=== PATIENT | male | born 1990 | race Caucasian/White ===

== ENCOUNTER 2018-03-10 03:21 | Emergency (ER) | payer SELFPAY ==
[~2018-03-10] VITALS: Ht 188 cm; Wt 118.0 kg
[2018-03-10] MEDS ORDERED: SODIUM CHLORIDE 0.9% 1,000 ML IV ONE (04:09)
[2018-03-10] MEDS ORDERED: FENTANYL CITRATE/PF 50MCG/ML 2ML VIAL IV ONE (04:15)
[2018-03-10] MEDS ORDERED: ONDANSETRON HCL 4MG/2ML INJ IV ONE (04:15)
[2018-03-10] MEDS ORDERED: PROPOFOL 200MG/20ML VIAL IV ONE (04:15)
[2018-03-10 06:02] VITALS: BP 125/74
== END 2018-03-10 06:31 | disposition home or self-care (01) ==
LOC: ER 03:21
DX: S82.842A Displaced bimalleolar fracture of left lower leg, initial encounter for closed fracture (principal); X50.1XXA Overexertion from prolonged static or awkward postures, initial encounter; Y93.A3 Activity, aerobic and step exercise; Y92.89 Other specified places as the place of occurrence of the external cause; Y99.8 Other external cause status
CPT/HCPCS: 29515; 73590; 73600; 73620; 96374; 96375; 99283; J2405; J2704; J3010; J7030; Z7610; 27840

== ENCOUNTER 2019-07-25 00:49 | Emergency (ER) | payer SELFPAY ==
[~2019-07-25] VITALS: Ht 182.9 cm; Wt 91.0 kg
[2019-07-25] MEDS ORDERED: NALOXONE HCL 1 MG/ML 2ML VIAL IV ONE (01:30)
[2019-07-25] MEDS ORDERED: NALOXONE HCL 0.4 MG/ML 1ML VIAL ONE (01:30)
[2019-07-25 01:51] LABS: HEMATOCRIT. 48.8 % (42.0-52.0); HEMOGLOBIN. 16.5 g/dL (14.0-18.0); MEAN CORPUSCULAR HEMOGLOBIN 32.3 pg (28.0-32.0); MEAN CORPUSCULAR VOLUME 95.4 fL (80.0-94.0); MEAN PLATELET VOLUME 8.3 fl (7.4-10.4); PLATELET 263 x1000/uL (130-400); RED BLOOD CELL COUNT 5.11 mill/uL (4.7-6.1)
[2019-07-25 01:55] LABS: CHLORIDE 105 mEq/L (98-107)
[2019-07-25 01:59] LABS: ETHANOL BLOOD < 10 mg/dL
[2019-07-25] MEDS ORDERED: SODIUM CHLORIDE 0.9% 1,000 ML IV ONE (02:15)
[2019-07-25 03:06] LABS: *AMPHETAMINES SCREEN URINE PRESUMTIVE POSITIVE (NEGATIVE); *BARBITURATES SCREEN URINE NEGATIVE (NEGATIVE)
[2019-07-25 03:07] LABS: *BENZODIAZEPINES SCREEN URINE PRESUMTIVE POSITIVE (NEGATIVE); *COCAINE SCREEN URINE PRESUMTIVE POSITIVE (NEGATIVE); CANNABINOID URINE SCREEN PRESUMTIVE POSITIVE (NEGATIVE); METHADONE URINE SCREEN NEGATIVE (NEGATIVE); OPIATES URINE SCREEN NEGATIVE (NEGATIVE); PHENCYCLIDINE URINE SCREEN NEGATIVE (NEGATIVE)
[2019-07-25 03:24] LABS: PLATELET ESTIMATE NORMAL
[2019-07-25 03:29] LABS: CLARITY URINE CLEAR (CLEAR); COLOR URINE YELLOW (YELLOW); KETONES URINE 1+ (NEGATIVE); LEUKOCYTE ESTERASE URINE NEGATIVE (NEGATIVE); NITRITE URINE NEGATIVE (NEGATIVE); OCCULT BLOOD URINE NEGATIVE (NEGATIVE); PROTEIN URINE 1+ (NEGATIVE)
[2019-07-25] MEDS ORDERED: LEVOFLOXACIN 750MG PREMIX 150 ML IV NR (09:30)
[2019-07-25 10:50] VITALS: BP 119/67
== END 2019-07-25 11:12 | disposition left against medical advice (07) ==
LOC: ER 00:49 → EDUNIT# 00:49 → ER 11:12 → CANBEDREQ 11:14
DX: T65.91XA Toxic effect of unspecified substance, accidental (unintentional), initial encounter (principal); Z20.828 Contact with and (suspected) exposure to other viral communicable diseases; F19.10 Other psychoactive substance abuse, uncomplicated; Y92.9 Unspecified place or not applicable
CPT/HCPCS: 36415; 71045; 80053; 80305; 80307; 80320; 80329; 81003; 85025; 93005; 96361; 96374; 96375; 99285; J1956; J2310; U0003; G0480

== ENCOUNTER 2021-03-10 08:25 | Emergency (ER) | payer MEDICAID, OTHER ==
[~2021-03-10] VITALS: Ht 172.7 cm; Wt 99.0 kg
[2021-03-10] MEDS ORDERED: DIAZEPAM 5 MG TABLET PO ONE (08:45)
[2021-03-10] MEDS ORDERED: KETOROLAC 60MG/2ML VIAL IM ONE (08:45)
[2021-03-10] MEDS ORDERED: IBUP-2030 MT (10:15)
[2021-03-10] MEDS ORDERED: CYCL25PO15 MT (10:15)
[2021-03-10 10:38] VITALS: BP 143/81
== END 2021-03-10 10:40 | disposition home or self-care (01) ==
LOC: ER 08:25
DX: M54.41 Lumbago with sciatica, right side (principal); F13.10 Sedative, hypnotic or anxiolytic abuse, uncomplicated
CPT/HCPCS: 72100; 96372; 99283; J1885

== ENCOUNTER 2021-06-10 11:12 | Emergency (ER) | payer MEDICAID ==
[~2021-06-10] VITALS: Ht 185.4 cm; Wt 100.0 kg
[~2021-06-10 11:12] MED LIST: CYCL25PO15 MT; IBUP-2030 MT
[2021-06-10 11:38] VITALS: BP 141/69
[2021-06-10] MEDS ORDERED: ONDANSETRON 4MG ODT PO ONE (12:00)
[2021-06-10] MEDS ORDERED: IBUPROFEN 800MG TABLET PO ONE (12:00)
[2021-06-10 12:13] LABS: CHLORIDE 109 mEq/L (98-107)
[2021-06-10 12:18] LABS: BASOPHILS % 0.3 % (0.0-2.0); EOSINOPHILS % 0.2 % (0.0-5.0); HEMOGLOBIN. 13.8 g/dL (14.0-18.0); LYMPHOCYTES % 22.1 % (20.0-50.0); MEAN CORPUSCULAR HEMOGLOBIN 29.8 pg (28.0-32.0); MEAN CORPUSCULAR VOLUME 88.3 fL (80.0-94.0); NEUTROPHILS % 73.4 % (40.0-76.0); PLATELET 300 x1000/uL (130-400); RED BLOOD CELL COUNT 4.64 mill/uL (4.7-6.1); RED CELL DISTRIBUTION WIDTH 14.2 % (11.6-14.6)
[2021-06-10] MEDS ORDERED: LORAZEPAM 0.5MG TABLET PO ONE (13:30)
[2021-06-10] MEDS ORDERED: LORAZEPAM 0.5MG TABLET PO SCH (14:15)
[2021-06-10] MEDS ORDERED: ONDANSETRON 4MG ODT PO SCH (14:15)
[2021-06-10] MEDS ORDERED: IBUPROFEN 800MG TABLET PO SCH (14:15)
[2021-06-10] MEDS ORDERED: NALO1DIS IM (14:29)
[2021-06-10] MEDS ORDERED: MELA5TAB3 MT (14:29)
== END 2021-06-10 14:45 | disposition home or self-care (01) ==
LOC: ER 11:12
DX: R11.2 Nausea with vomiting, unspecified (principal); R19.7 Diarrhea, unspecified; G47.00 Insomnia, unspecified
CPT/HCPCS: 36415; 80053; 83690; 85025; 99284; Q0162

== ENCOUNTER 2022-04-24 23:28 | Emergency (ER) | payer MEDICAID ==
[~2022-04-24] VITALS: Ht 182.9 cm; Wt 110.4 kg
[~2022-04-24 23:28] MED LIST changes: +MELA5TAB3 MT; +NALO1DIS IM
[2022-04-24 23:38] VITALS: BP 170/76
[2022-04-24] MEDS ORDERED: IBUPROFEN 600MG TABLET PO ONE (23:45)
[2022-04-24] MEDS ORDERED: HYDROCODONE/ACETAMINOPHEN 5/325MG TABLET PO ONE (23:45)
[2022-04-25] MEDS ORDERED: HYDR-4001 MT (01:19)
[2022-04-25] MEDS ORDERED: IBUP-2028 MT (01:22)
== END 2022-04-25 02:01 | disposition home or self-care (01) ==
LOC: ER 23:28
DX: S51.832A Puncture wound without foreign body of left forearm, initial encounter (principal); W34.09XA Accidental discharge from other specified firearms, initial encounter; Y93.89 Activity, other specified; Y92.89 Other specified places as the place of occurrence of the external cause; Y99.8 Other external cause status; Z79.899 Other long term (current) drug therapy
CPT/HCPCS: 29125; 73090; 73110; 99284; Z7610; A4565